=== PATIENT | female | born 1955 | race Caucasian/White ===

== ENCOUNTER 2021-07-23 04:24 | Emergency (ER) | payer OTHER ==
[~2021-07-23 04:24] MED LIST: ATIVAN0.5 MG PO; LIPITOR40 MG PO; MAXALT MLT10 MG PO; SYNTHROID75 MCG PO; TOPROL XL 50 MG50 MG PO
[2021-07-23 05:18] LABS: BASOPHIL 0.4 % (0-2); EOSINOPHIL 0.5 % (0-7); HCT 39.3 % (37.0-47.0); HGB 13.1 g/dl (12.5-16.0); LYMPHOCYTE 18.9 % (15-48); MCH 30.5 pg (25.0-31.0); MCHC 33.3 g/dL (32.0-36.0); MCV 91.6 fL (78.0-100.0); MONOCYTE 7.5 % (0-12); MPV 11.5 fL (6.0-9.5); NEUTROPHIL 72.3 % (41-80); NRBC 0; PLT 228 K/uL (150-400); RBC 4.29 M/uL (4.20-5.40); RDW 13.9 % (11.5-14.0); WBC 13.5 K/uL (4.0-10.5)
[2021-07-23 06:09] LABS: ALBUMIN 3.7 g/dL (3.4-5.0); BILIRUBIN - TOTAL 0.4 mg/dL (0.2-1.0); BUN/CREAT RATIO (CALC) 20.3 RATIO; CREATININE 0.64 mg/dL (0.51-0.95); GLOBULIN (CALCULATION) 3.7 g/dL; POTASSIUM 3.7 mmol/L (3.5-5.1); TOTAL PROTEIN 7.4 g/dL (6.4-8.2)
== END 2021-07-23 06:37 | disposition home or self-care (01) ==
LOC: FER 04:24
PROVIDERS: Emergency Medicine
DX: M25.511 Pain in right shoulder (principal); I10 Essential (primary) hypertension; F17.200 Nicotine dependence, unspecified, uncomplicated; Z88.8 Allergy status to other drugs, medicaments and biological substances; Z91.041 Radiographic dye allergy status; Z79.899 Other long term (current) drug therapy
CPT/HCPCS: 36415; 71045; 73030; 80053; 84484; 85025; 93005; J1885